=== PATIENT | male | born 1990 | race African-American/Black ===

== ENCOUNTER 2024-08-23 10:25 | Outpatient (REF) | payer OTHER, SELFPAY ==
--- NOTE | ~2024-08-23 | XR_ITS ---
EXAMINATION: XR KNEE, LEFT CLINICAL INFORMATION: Pain in left knee. COMPARISON: None available. TECHNIQUE: Four views of the left knee. FINDINGS: Prior ACL repair. No fracture, dislocation, or suspicious bone lesion. Normal alignment. Joint spaces demonstrate minimal narrowing medial compartment. Lateral and patellofemoral compartments are preserved. There is a prominent suprapatellar joint effusion. No soft tissue abnormality. XR/XR knee LT 4V IMPRESSION: 1. Suprapatellar joint effusion. 2. No acute bony abnormalities. Prior ACL repair. Electronically signed by: Souleymane Barnes MD 08/23/2024 11:53 AM [facility]
--- OUTSIDE RECORDS SUMMARY | 2024-08-23 12:48 | XMS_ITS | Encounter Summary ---
Author Organization [facility] Address [address] [place] [id number] Care Team Providers Care Space Operations Name Role Phone Pcp, No Primary Care Provider Unavailabl e Encounter Details Date Type Department Care Team (Latest Contact Info) Description 08/11/2024 Travel Social History Tobacco Use Types Packs/Day Years Used Date Smoking Tobacco: Never Assessed Sex and Gender Information Value Date Recorded Sex Assigned at Not on file Gender Identity Not on file Sexual Orientation Not on file documented as of this encounter Plan of Treatment Upcoming Encounters Date Type Department Care Team (Late st Contact Info) Description 10/18/2024 11:30 AM EDT Office Visit [facility] [address] [facility] [address] [place] [id number] Zayda Moreno PA-C [address] [place] [address] documented as of this encounter Visit Diagnoses Not on filedocumented in this encounter Care Teams Space Operations Relationship Specialty Start Date End Date Pcp, No PCP - General General Medicine 06/15/24 documented as of this encounter
--- OUTSIDE RECORDS SUMMARY | 2024-08-23 12:48 | XMS_ITS | Clinical Summary ---
Author Organization [facility] Address [address] [place] [address] Care Team Providers Care Molding Supervisor Name Role Phone Pcp, No Primary Care Provider Unavailabl e Allergies No known active allergies Medications No known medications Encounters Date Type Department Care Team Description 08/11/2024 7:25 PM EST Office Visit [facility] [address] [place] [address] Luis Saldaña MD Wiggins, Miriam K PACami Pain in joint involving right ankle and foot (Primary Dx) 08/11/2024 Travel from Last 3 Months Social History Tobacco Use Types Packs/Day Years Used Date Smoking Tobacco: Never Assessed Sex and Gender Information Value Date Recorded Sex Assigned at Not on file Gender Identity Not on file Sexual Orientation Not on file Last Filed Vital Signs Vital Sign Reading Time Taken Comments Blood Pressure 121/85 08/11/2024 7:48 PM EST Pulse 100 08/11/2024 7:48 PM EST Temperature 37 ??C (98.6 ??F) 08/11/2024 7:48 PM EST Respiratory Rate - - Oxygen Saturation 98% 08/11/2024 7:48 PM EST Inhaled Oxygen Concentration - - Weight - - Height - - Body Mass Index - - Plan of Treatment Upcoming Encounters Date Type Department Care Team (Late st Contact Info) Description 10/18/2024 11:30 AM EDT Office Visit [facility] [address] [facility] [address] [place] [phone] Zayda Moreno PA-C [address] [place] [address] Health Maintenance Due Date Last Done Comments Hepatitis C Virus Screening 1990 HIV Screening 2003 DTaP/Tdap/Td Vaccines (1 - Tdap) 2009 Hepatitis B Vaccines (1 of 3 - 19+ 3-dose series) 2009 Influenza Vaccine 02/11/2024 COVID-19 Vaccine (2 - 2023-2 5 season) 2024 05/09/2021 HPV Vaccines Aged Out No longer eligi ble based on patient's age to complete this topic Pneumococcal Vaccine: Pediat galdino (0-5 Years) and At-Risk Patients (6 to 49 Years) Aged Out No longer eligible b ased on patient's age to complete this topic Care Teams Molding Supervisor Relationship Specialty Start Date End Date Pcp, No PCP - General General Medicine 06/15/24
--- OUTSIDE RECORDS SUMMARY | 2024-08-23 12:48 | XMS_ITS | Encounter Summary ---
Author Organization [facility] Address [address] [place] [address] Care Team Providers Care Gas Brazer Name Role Phone Pcp, No Primary Care Provider Unavailabl e Reason for Visit * Reason Comments Ankle Pain RT ankle swollen and painful 1 day Encounter Details Date Type Department Care Team ([facility] st Contact Info) Description 08/11/2024 7:25 PM EST Office Visit [facility] [address] [place] [address] Luis Saldaña MD [address] [place] [address] Imelda Muñoz PA-C [address] [place] [phone] Pain in joint involving right ankle and foot (Primary Dx) Social History Tobacco Use Types Packs/Day Years Used Date Smoking Tobacco: Never Assessed Sex and Gender Information Value Date Recorded Sex Assigned at Not on file Gender Identity Not on file Sexual Orientation Not on file documented as of this encounter Last Filed Vital Signs Vital Sign Reading Time Taken Comments Blood Pressure 121/85 08/11/2024 7:48 PM EST Pulse 100 08/11/2024 7:48 PM EST Temperature 37 ??C (98.6 ??F) 08/11/2024 7:48 PM EST Respiratory Rate - - Oxygen Saturation 98% 08/11/2024 7:48 PM EST Inhaled Oxygen Concentration - - Weight - - Height - - Body Mass Index - - documented in this encounter Progress Notes * Imelda Muñoz PA-C - 08/11/2024 7:58 PM EST Images from the original note were not included. [facility] [address] [facility] [address] [place] [address] Encounter Date: 08/11/24 Assessment & Plan 1. Pain in joint involving right ankle and foot 1. Pain in joint involving right ankle and foot Medical Decision Making and Data Synthesis: Patients presents with acute onset of severe right ankle pain and swelling. Patient unable to weight-bear. Unable to tolerate range of motion. States he is unable to actively move his foot and ankle due to pain. He has no known history of gout. No injury or inciting event. He does recall a similar but less severe episode involving his left foot. He states he recently moved to [place] and has a PCP appointment sometime in the next month or 2. Due to severity of symptoms and lack of x-ray availability in center I recommended that the patientpresent to a local emergency department for further eval and treatment. He and significant other voiced understanding and agree with this plan. Discussed need for x-ray and laboratory workup to rule out infection. Communication barriers and lifestyle preferences were addressed with the patient. The care plan including medications and self-management goals were reviewed to the best of the patient's ability. Allquestions and concerns were answered. Patient and/or family verbalized understanding of the plan ofcare. Imelda Muñoz PA-C 08/11/24 7:58 PM Subjective HPI Jabier Sanchez is a 34 y.o. male who presents for evaluation of atraumatic onset of right ankle pain and swelling. Patient denies any injury or inciting event. Denies numbness or tingling. States heis unable to weight-bear. He does recall a similar episode in the past on his contralateral foot and ankle but states his symptoms were not as severe. Those symptoms resolved on their own. He has no known history of gout in himself or family members. No recall tick or other insect bite. Review of systems: Denies fevers, chills or sweats. Denies numbness or tingling of the left lower extremity. Denies involvement of other joints. No past medical history on file. No current outpatient medications on file. No Known Allergies No family history on file. No outpatient medications prior to visit. No Known Allergies Objective Vitals: 08/11/24 1948 BP: 121/85 Pulse: 100 Temp: 98.6 ??F (37 ??C) SpO2: 98% Examination: General: no acute distress, well developed, well nourished, alert and oriented x 3, patient moves all extremities without any difficulty. Head: Normocephalic, atraumatic. Extremities: Perfused. Examination of the right foot and ankle reveals moderate to severe edema involving the tibiotalar joint line and lateral aspect of the foot and ankle. Patient unable to tolerate ankle range of motion due to severe discomfort. Actively he is only able to plantarflex minimally and not able to dorsiflex. Passively he is unable to tolerate more than a 5 degree arc of motion. His skin is intact. He has no open wounds. He is diffusely tender to palpation about the tibiotalar joint as well as the subtalar joint line laterally. He has a palpable DP pulse. Sensation grossly intact to light touch. Calf supple and nontender. Patient unable to weight-bear due to severity of discomfort. Psych: Affect normal, Interactive, conversant. Skin: warm, dry, No rash on visible skin Imelda Muñoz PA-C 08/11/24 7:58 PM documented in this encounter Plan of Treatment Upcoming Encounters Date Type Department Care Team (Late st Contact Info) Description 10/18/2024 11:30 AM EDT Office Visit [address] [place] [address] Zayda Moreno PA-C [address] [place] [address] documented as of this encounter Visit Diagnoses Diagnosis Pain in joint involving right ankle and foot- Primary documented in this encounter Care Teams Gas Brazer Relationship Specialty Start Date End Date Pcp, No PCP - General General Medicine 06/15/24 documented as of this encounter
== END 2024-08-23 10:26 | disposition home or self-care (01) ==
LOC: HO.HMGCX 10:25
PROVIDERS: Visit Provider Internal Medicine
DX: M25.562 Pain in left knee (principal)
CPT/HCPCS: 73564

== ENCOUNTER 2024-08-23 10:25 | Outpatient (AMB) | payer OTHER, SELFPAY ==
--- NOTE | 2024-08-23 10:44 | MHC.OFFWIV ---
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 HPI Details - The patient is a 34-year-old male presenting with left knee pain possibly related to a gout flare-up. - Symptoms originated with ankle pain two weeks ago, suspecting gout, in ER, although not formally diagnosed at that time. - The left knee pain developed acutely and is localized, described as excruciating. - Ibuprofen was utilized for pain management prior to the current visit. - The patient practices a balanced diet and infrequent alcohol intake. Problem List - Gout / Pain swelling left knee Patient Instructions - Take prescribed medications including indomethacin and prednisone as directed for inflammation and pain management. - Proceed to the x-ray facility for imaging of the affected area. - Attend follow-up appointment in three days for further evaluation and continuation of care. - Seek immediate care if symptoms worsen or do not improve with treatment. Review of Systems - General: No fever no chills - Neurological: No headaches no dizziness - Ear nose throat: No sore throat no hearing difficulty no ear pain - Cardiovascular: No syncope, no chest pain, no palpitations - Gastrointestinal: No nausea vomiting or diarrhea - Endocrine: No polyuria polydipsia no heat intolerance - Genitourinary: No dysuria , no blood in urine Physical Exam General: No acute distress HEENT: No acute findings Neck: Supple Respiratory system: Able to talk in full sentences, no audible wheeze Gastrointestinal: No pain Extremities: Pain in left knee , + swelling, ROM limited due to pain, no erythema 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 - Symptoms originated with ankle pain two weeks ago, suspecting gout, in ER, although not formally diagnosed at that time. - The left knee pain developed acutely and is localized, described as excruciating. - Ibuprofen was utilized for pain management prior to the current visit. - The patient practices a balanced diet and infrequent alcohol intake. Problem List - Gout / Pain swelling left knee Patient Instructions - Take prescribed medications including indomethacin and prednisone as directed for inflammation and pain management. - Proceed to the x-ray facility for imaging of the affected area. - Attend follow-up appointment in three days for further evaluation and continuation of care. - Seek immediate care if symptoms worsen or do not improve with treatment. Orders: Orders XR knee RT 2V Today M25.561 - Pain in right knee Medications: New indomethacin administer with food or milk 50 mg PO BID 14 caps 0RF prednisone 20 mg PO DAILY 5 tabs 0RF 5 days Coding Level of Care Code New Pt Level 3 (02195) Diagnoses Pain, joint, knee, right M25.561
[2024-08-23 10:50] VITALS: BP 118/68; PULSE 90; TEMP 36.8; O2SAT 96
== END 2024-08-23 11:04 | disposition home or self-care (01) ==
PROVIDERS: Visit Provider Internal Medicine
DX: M25.561 Pain in right knee (principal)

== ENCOUNTER → 2024-08-23 11:16 | Outpatient (BNV) | payer OTHER, SELFPAY | PROVIDERS: Visit Provider Radiology Diagnostic Radiology | DX: M25.562 Pain in left knee (principal) | CPT/HCPCS: 73564 ==

== ENCOUNTER 2024-08-26 09:33 | Outpatient (AMB) | payer OTHER, SELFPAY ==
[2024-08-26 09:33] VITALS: BP 116/70; PULSE 87; TEMP 36.8; O2SAT 98; BMI 26.5
--- NOTE | 2024-08-26 09:33 | MHC.PC.OV ---
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 Allergies No Known Allergies Allergy (Verified 08/26/24 09:34) Medication List - Last Reconciled 08/26/24 by Heather Owen MD indomethacin 50 mg PO BID prednisone 20 mg PO DAILY 5 days Tobacco use date assessed: 08/26/24 Dental Screening Dental Screen Date: 08/26/24 Did you have a dental visit in the last 12 months?: Yes Did you have a dental problem in the last 6 months where you did not have access to dental care?: No Was dental information given to patient?: Patient has dentist 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 Swelling of left knee which was worse few days ago but is better now that he is able to walk on it - The patient is a 34-year-old male presenting with joint-related issues and chronic cough. - Previous knee swelling has improved though mild edema persists; patient was treated with indomethacin and prednisone, he is to continue indomethacin Patient will need a rheumatology consultation. He lives in [place] and will eventually change primary care locally - A chronic cough has persisted linked to allergy and possibly reflux, with symptoms including throat irritation; patient?s albuterol inhaler offers no relief. History of asthma as a child, history of multiple allergies Also complaining of regurgitation of food when he lays down at night - Comprehensive family history includes diabetes without history of thyroid or cardiac conditions. Health Maintenance - Up-to-date on immunizations, including tetanus vaccine. - Recommendations for routine blood work to evaluate cholesterol and glucose levels considering family history of diabetes. Medications - Indomethacin for joint swelling. I am adding omeprazole 40 mg to be taken at night Symbicort b.i.d. Also recommend to start taking okqq-iwb-odnglya allergy medication like loratadine or Zyrtec Social History - No pets at home which may contribute to allergies. - Resides in [place], previously lived in [place] for several years; occupation and education details not discussed. Family History - Positive family history of diabetes. - Denies family history of thyroid or cardiac conditions. Problem List - Joint Swelling - Chronic Cough - Gout - Family History of Diabetes - Asthma - Nice's Cyst - possible acid reflux - flare-up of asthma - multiple environmental allergies - overweight Patient Instructions - Schedule a rheumatology appointment down the road for further evaluation of recurrent knee swelling - Continue indomethacin for joint swelling as directed. - Begin a maintenance inhaler with steroid if indicated and covered by insurance. Symbicort sent - Consider rpie-jfi-ydeiqkb allergy medication such as Claritin daily. - Collect blood tests after a fasting period of at least 10 hours. - Continue monitoring symptoms and prepare for a follow-up in approximately three weeks. - start omeprazole at night Follow-up telephone visit in 3 weeks Review of Systems - General: No fever no chills - Neurological: No headaches no dizziness - Ear nose throat: No sore throat no hearing difficulty no ear pain - Cardiovascular: No syncope, no chest pain, no palpitations - Gastrointestinal: No nausea vomiting or diarrhea - Endocrine: No polyuria polydipsia no heat intolerance - Genitourinary: No dysuria - Skin: No new complaints Physical Exam General: Cooperative, healthy appearing, comfortable, no acute distress Orientation: Patient oriented x3 Limitations: Due to pain left knee Head: Normal to inspection Ears: Within normal limit visually Nose: Normal external nose present Face and sinus: Normal facial exam Eyes: Appearance normal, extraocular movement intact pupils reactive Neck: Normal visual inspection and supple Respiratory: Normal respiratory effort and able to speak in complete sentences. Clear to auscultation, no stridor Cardiovascular: S1 and S2 GI: Normal to inspection. Soft to palpation and nontender Skin: Turgor normal, no acute findings. Noted a small patch, possibly due to chronic friction, not itchy or painful Neuro: Patient oriented x3, motor sensory intact, balance intact Extremities: slight swelling noted in the knee, mild swelling is still present and also tender behind the knee with palpation but no calf tenderness [facility] Social History Housing: House Patient Tobacco Use Status: Never used Tobacco e-Cigarette/Vaping Use: Never Used service: No Cognitive needs: No Hearing needs: No Vision needs: No Questionnaire PHQ-9 Over the last 2 weeks, how often have you been bothered by any of the following problems? 1. Little interest or pleasure in doing things: not at all 2. Feeling down, depressed, or hopeless: not at all 3. Trouble falling or staying asleep, or sleeping too much: not at all 4. Feeling tired or having little energy: not at all 5. Poor appetite or overeating: not at all 6. Feeling bad about yourself - or that you are a failure or have let yourself or your family down: not at all 7. Trouble concentrating on things, such as reading the newspaper or watching television: not at all 8. Moving or speaking so slowly that other people could have noticed. Or the opposite - being so fidgety or restless that you have been moving around a lot more than usual: not at all 9. Thoughts that you would be better off or of hurting yourself in some way: not at all Total score: 0 Depression Screening Interpretation: Negative Depression Screening Done: Yes 46277 - PHQ-9 Billing: Yes Source: Developed by Drs. Aguilar Harrison, Kayli Hogan, Faheem Yeung and colleagues, with an educational rory from [employer]. Thrive Questionnaire Date Thrive assessed: 08/26/24 I am a: Patient What is your living situation today?: I have a steady place to live Within the past 12 months, did the food you bought not last and you didn't have the money to get more?: Never true Within the past 12 months, did you worry whether your food would run out before you got money to buy more?: Never true Do you have trouble paying for medicines?: No Do you have trouble getting transportation to medical appointments?: No Do you have trouble paying your heating and electricity bill?: No Do you have trouble taking care of your child, family member or friend?: No Do you have trouble with day-to-day activities such as bathing, preparing meals, shopping, managing finances, etc.?: No Are you currently unemployed and looking for a job?: No Are you interested in more education?: No Please select the resources that you would like help with: None Currently or been in a relationship where the following occur: No concerns reported THRIVE Score: 0 AUDIT C Alcohol Use Questionnaire (AUDIT-C) 1. How often do you have a drink containing alcohol?: Never 3. How often do you have six or more drinks on one occasion?: Never Total Score: 0 Score Reviewed/Action Taken: Yes KAREN-7 AMB Questionnaire KAREN-7 Date KAREN - 7 assessed: 08/26/24 Feeling nervous, anxious, or on edge: 0 = Not at all Not being able to stop or control worryin = Not at all Worrying too much about different things: 0 = Not at all Trouble relaxin = Not at all Being so restless that it is hard to sit still: 0 = Not at all Becoming easily annoyed or irritable: 0 = Not at all Feeling afraid as if something awful might happen: 0 = Not at all Total KAREN-7 score (0-4 normal; 5-9 mild; 10-14 moderate; 15-21 severe): 0 Source: Developed by Drs. Aguilar Harrison, Kayli Hogan, Faheem Yeung and colleagues, with an educational rory from [employer]. KAREN-7 Assessment Billing KAREN-7 Assessment Tool: KAREN-7 Assessment 62388 Physical exam (Primary Care) Vital Signs: Last Vital Signs Temp 98.2 F 08/26/24 09:33 Pulse 87 08/26/24 09:33 BP 116/70 08/26/24 09:33 Pulse Ox 98 08/26/24 09:33 Oxygen Delivery Method Room Air 08/26/24 09:33 BMI result Body Mass Index 26.5 Tobacco/Smoking Status: Tobacco use Status Tobacco use date assessed 08/26/24 08/26/24 09:42 Patient Tobacco Use Status Never used Tobacco 08/26/24 09:42 e-Cigarette/Vaping Use Never Used 08/26/24 09:42 PHQ-9: PHQ-9 Score PHQ-9: Total score 0 08/26/24 10:07 Depression Screening Interpretation: Negative Thrive Assessment: Date of Thrive Assessment Date Thrive assessed 08/26/24 08/26/24 09:42 Currently or been in a relationship where the following occur: No concerns reported Coding Level of Care Code New Pt Level 4 (20153) New Pt Prev Care 18-39yr(01033 Diagnoses Establishing care with new doctor, encounter for Z76.89 Pain, joint, knee, right M25.561 Gouty arthritis M10.9 Chronic cough R05.3 Gastroesophageal reflux disease without esophagitis K21.9 Esophagitis presence: without esophagitis History of asthma Z87.09 Multiple environmental allergies Z91.09 Family history of diabetes mellitus Z83.3 Overweight (BMI 25.0-29.9) E66.3 Additional Codes KAREN-7 Assessment Billing - KAREN-7 Assessment Tool: KAREN-7 Assessment 83685 ([id number]) PHQ-9 - 61157 - PHQ-9 Billing: Yes ([id number]) Assessment & Plan Assessment & Plan (1) Establishing care with new doctor, encounter for: Code(s): Z76.89 - Persons encountering health services in other specified circumstances Category: Medical (2) Pain, joint, knee, right: Code(s): M25.561 - Pain in right knee Category: Medical (3) Gouty arthritis: Code(s): M10.9 - Gout, unspecified Category: Medical (4) Chronic cough: Code(s): R05.3 - Chronic cough Category: Medical (5) Acid reflux: Code(s): K21.9 - Gastro-esophageal reflux disease without esophagitis Category: Medical Qualifiers: Esophagitis presence: without esophagitis Qualified Code(s): K21.9 - Gastro-esophageal reflux disease without esophagitis (6) History of asthma: Code(s): Z87.09 - Personal history of other diseases of the respiratory system Category: Medical (7) Multiple environmental allergies: Code(s): Z91.09 - Other allergy status, other than to drugs and biological substances Category: Medical (8) Family history of diabetes mellitus: Code(s): Z83.3 - Family history of diabetes mellitus Category: Medical (9) Overweight (BMI 25.0-29.9): Code(s): E66.3 - Overweight Category: Medical Plan Patient came in for establish care visit The patient presents with an ongoing joint problem and a persistent cough. Swelling of left knee which was worse few days ago but is better now that he is able to walk on it - The patient is a 34-year-old male presenting with joint-related issues and chronic cough. - Previous knee swelling has improved though mild edema persists; patient was treated with indomethacin and prednisone, he is to continue indomethacin Patient will need a rheumatology consultation. He lives in [place] and will eventually change primary care locally - A chronic cough has persisted linked to allergy and possibly reflux, with symptoms including throat irritation; patient?s albuterol inhaler offers no relief. History of asthma as a child, history of multiple allergies Also complaining of regurgitation of food when he lays down at night - Comprehensive family history includes diabetes without history of thyroid or cardiac conditions. Health Maintenance - Up-to-date on immunizations, including tetanus vaccine. - Recommendations for routine blood work to evaluate cholesterol and glucose levels considering family history of diabetes. Medications - Indomethacin for joint swelling. I am adding omeprazole 40 mg to be taken at night Symbicort b.i.d. Also recommend to start taking ntqj-eud-zthazvx allergy medication like loratadine or Zyrtec Social History - No pets at home which may contribute to allergies. - Resides in [place], previously lived in [place] for several years; occupation and education details not discussed. Family History - Positive family history of diabetes. - Denies family history of thyroid or cardiac conditions. Problem List - Joint Swelling - Chronic Cough - Gout - Family History of Diabetes - Asthma - Nice's Cyst - possible acid reflux - flare-up of asthma - multiple environmental allergies - overweight Patient Instructions - Schedule a rheumatology appointment down the road for further evaluation of recurrent knee swelling - Continue indomethacin for joint swelling as directed. - Begin a maintenance inhaler with steroid if indicated and covered by insurance. Symbicort sent - Consider huma-ssh-xtqgguo allergy medication such as Claritin daily. - Collect blood tests after a fasting period of at least 10 hours. - Continue monitoring symptoms and prepare for a follow-up in approximately three weeks. - start omeprazole at night Follow-up telephone visit in 3 weeks Orders: Orders Comprehensive [place]. Panel Fast Today M10.9 - Gout, unspecified, M25.561 - Pain in right knee, Z76.89 - Persons encountering health services in other specified circumstances Lipid Panel Today M10.9 - Gout, unspecified, M25.561 - Pain in right knee, Z76.89 - Persons encountering health services in other specified circumstances UA CC w/rflx Micro + Cult Today M10.9 - Gout, unspecified, M25.561 - Pain in right knee, Z76.89 - Persons encountering health services in other specified circumstances Complete Blood Count Auto Diff Today M10.9 - Gout, unspecified, M25.561 - Pain in right knee, Z76.89 - Persons encountering health services in other specified circumstances Vitamin D 25-OH (D2 and D3) Today M10.9 - Gout, unspecified, M25.561 - Pain in right knee, Z76.89 - Persons encountering health services in other specified circumstances Vitamin B12 Today M10.9 - Gout, unspecified, M25.561 - Pain in right knee, Z76.89 - Persons encountering health services in other specified circumstances TSH reflex Free T4 Today M10.9 - Gout, unspecified, M25.561 - Pain in right knee, Z76.89 - Persons encountering health services in other specified circumstances Uric Acid Today M10.9 - Gout, unspecified, M25.561 - Pain in right knee, Z76.89 - Persons encountering health services in other specified circumstances Hemoglobin A1c Today Z83.3 - Family history of diabetes mellitus Medications: New omeprazole Take it on empty stomach at night 40 mg PO DAILY 90 caps 0RF Acid reflux 90 days budesonide-formoterol 160-4.5 mcg/actuation (Symbicort) 1 inh inhalation BID 10.2 grams 0RF Asthma 30 days Changed From indomethacin administer with food or milk 50 mg PO BID 14 caps 0RF To indomethacin administer with food or milk 50 mg PO BID PRN 60 caps 0RF Knee pain 30 days
--- OUTSIDE RECORDS SUMMARY | 2024-08-26 09:59 | XMS_ITS | Clinical Summary ---
Author Organization [facility] Address [address] [place] [address] Care Team Providers Care Director Of Financial Aid Name Role Phone Pcp, No Primary Care Provider Unavailabl e Allergies No known active allergies Medications No known medications Encounters Date Type Department Care Team Description 08/11/2024 7:25 PM EST Office Visit [facility] [place] [address] [place] [address] Luis Saldaña MD Wiggins, Miriam K PACami [...] Description 10/18/2024 11:30 AM EDT Office Visit [facility] [address] [facility] [address] [place] [address] Zayda Moreno PA-C [address] [place] [address] Health Maintenance Due Date Last Done Comments [...] age to complete this topic Care Teams Director Of Financial Aid Relationship Specialty Start Date End Date Pcp, No PCP - General General Medicine 06/15/24
--- OUTSIDE RECORDS SUMMARY | 2024-08-26 10:00 | XMS_ITS | Encounter Summary ---
Author Organization [facility] Address [address] [place] [address] Care Team Providers Care Foam Cutting Supervisor Name Role Phone Pcp, No Primary Care Provider Unavailabl e Reason for Visit * Reason Comments Ankle Pain RT ankle swollen and painful 1 day Encounter Details Date Type Department Care Team ([facility] st Contact Info) Description 08/11/2024 7:25 PM EST Office Visit [facility] [place] [address] [place] [address] Luis Saldaña MD [address] [place] [address] Imelda Muñoz PA-C [address] [place] [id number] Pain in joint involving right ankle and [...] from the original note were not included. [facility] [address] [place] [facility] [place] [address] [place] [address] Encounter Date: 08/11/24 Assessment & Plan 1. [...] foot. He states he recently moved to [place] and has a PCP appointment sometime in [...] Description 10/18/2024 11:30 AM EDT Office Visit [address] [place] [address] Zayda Moreno PA-C [address] [place] [address] documented as of this encounter Visit Diagnoses Diagnosis Pain in joint involving right ankle and foot- Primary documented in this encounter Care Teams Foam Cutting Supervisor Relationship Specialty Start Date End Date Pcp, No PCP - General General Medicine 06/15/24 documented as of this encounter
--- OUTSIDE RECORDS SUMMARY | 2024-08-26 10:00 | XMS_ITS | Encounter Summary ---
Author Organization [facility] Address [address] [place] [address] Care Team Providers Care Shoe Singer Name Role Phone Pcp, No Primary Care [...] 10/18/2024 11:30 AM EDT Office Visit [facility] 100 [facility] [address] [place] [address] Zayda Moreno PA-C [address] [place] [address] documented as of this encounter Visit Diagnoses Not on filedocumented in this encounter Care Teams Shoe Singer Relationship Specialty Start Date End Date Pcp, No PCP - General General Medicine 06/15/24 documented as of this encounter
== END 2024-08-26 10:17 | disposition home or self-care (01) ==
PROVIDERS: PCP Internal Medicine; Visit Provider Internal Medicine
DX: Z00.00 Encounter for general adult medical examination without abnormal findings (principal); M25.561 Pain in right knee; M10.9 Gout, unspecified; R05.3 Chronic cough; K21.9 Gastro-esophageal reflux disease without esophagitis; Z76.89 Persons encountering health services in other specified circumstances; Z87.09 Personal history of other diseases of the respiratory system; Z91.09 Other allergy status, other than to drugs and biological substances; Z83.3 Family history of diabetes mellitus; E66.3 Overweight

== ENCOUNTER 2024-08-26 09:33 | Outpatient (REF) | payer OTHER, SELFPAY ==
--- OUTSIDE RECORDS SUMMARY | 2024-08-26 10:44 | XMS_ITS | Encounter Summary ---
Author Organization [facility] Address [address] [place] [address] Care Team Providers Care Thread Dresser Name Role Phone Pcp, No Primary Care [...] Description 10/18/2024 11:30 AM EDT Office Visit [facility] 100 [facility] [address] [place] [address] Zayda Moreno PA-C [address] [place] [address] documented as of this encounter Visit Diagnoses Not on filedocumented in this encounter Care Teams Thread Dresser Relationship Specialty Start Date End Date Pcp, No PCP - General General Medicine 06/15/24 documented as of this encounter
--- OUTSIDE RECORDS SUMMARY | 2024-08-26 10:44 | XMS_ITS | Encounter Summary ---
Author Organization [facility] Address [address] [place] [address] Care Team Providers Care Electrical Electronics Engineers Name Role Phone Pcp, No Primary Care Provider Unavailabl e Reason for Visit * Reason Comments Ankle Pain RT ankle swollen and painful 1 day Encounter Details Date Type Department Care Team ([facility] st Contact Info) Description 08/11/2024 7:25 PM EST Office Visit [facility] [place] [address] [place] [address] Luis Saldaña MD 1 [place] [address] Imelda Muñoz PA-C [address] [place] [address] Pain in joint involving right ankle and [...] from the original note were not included. [facility] [address] [facility] [place] [address] [place] [address] Encounter Date: 08/11/24 Assessment & Plan 1. [...] foot. He states he recently moved to [place] and has a PCP appointment sometime in [...] Description 10/18/2024 11:30 AM EDT Office Visit [address] [place] [address] Zayda Moreno PA-C [address] [place] [address] documented as of this encounter Visit Diagnoses Diagnosis Pain in joint involving right ankle and foot- Primary documented in this encounter Care Teams Electrical Electronics Engineers Relationship Specialty Start Date End Date Pcp, No PCP - General General Medicine 06/15/24 documented as of this encounter
--- OUTSIDE RECORDS SUMMARY | 2024-08-26 10:44 | XMS_ITS | Clinical Summary ---
Author Organization [facility] Address [address] [place] [address] Care Team Providers Care Photography Colorist Name Role Phone Pcp, No Primary Care Provider Unavailabl e Allergies No known active allergies Medications No known medications Encounters Date Type Department Care Team Description 08/11/2024 7:25 PM EST Office Visit [facility] [place] [address] [place] [address] Luis Saldaña MD Wiggins, Miriam K PACami [...] Description 10/18/2024 11:30 AM EDT Office Visit [facility] 100 [facility] 101 [place] [address] Zayda Moreno PA-C [address] [place] [address] Health Maintenance Due Date Last Done Comments [...] age to complete this topic Care Teams Photography Colorist Relationship Specialty Start Date End Date Pcp, No PCP - General General Medicine 06/15/24
[2024-08-26 13:12] LABS: MANUAL DIFF FLAG NO
[2024-08-26 13:23] LABS: Basophils Percent Auto 0.6 % (0-2); Eosinophils Absolute Auto 0.1 X10*3/uL (0.0-0.4); Eosinophils Percent Auto 1.2 % (0-4); Hematocrit 44.3 % (42.0-52.0); Hemoglobin 13.8 g/dl (14.0-18.0); Imm Gran Abs Auto 0.03 X10*3/uL (0.00-0.03); Imm Gran Pct Auto 0.4 % (0.0-0.4); Lymphocytes Absolute Auto 2.4 X10*3/uL (1.2-4.9); Lymphocytes Percent Auto 32.5 % (20-40); Mean Corpuscular HGB Conc 31.2 g/dl (31.0-36.0); Mean Corpuscular Hemoglobin 27.4 pg (27.0-33.0); Mean Corpuscular Volume 88.1 fL (80.0-98.0); Mean Platelet Volume 9.7 fL (9.4-12.4); Monocytes Absolute Auto 0.6 X10*3/uL (0.1-1.2); Monocytes Percent Auto 7.6 % (2-11); Neutrophils Absolute Auto 4.2 x10*3/uL (2.0-8.3); Neutrophils Percent Auto 57.7 % (45-73); Platelet Count 357 X10*3/uL (160-400); Red Blood Count 5.03 X10*6/uL (4.60-5.80); Red Cell Distribution Width 13.4 % (11.0-16.0); White Blood Count 7.2 X10*3/uL (4.8-10.8)
[2024-08-26 13:40] LABS: Color Urine Yellow; Glucose Urine UA Negative (Negative); Leukocyte Esterase Urine Negative (Negative); Nitrite Urine Negative (Negative); PH 5.5 (5.0-9.0); Urine Blood Negative (Negative); Urine Ketones Negative (Negative); Urine Protein Negative (Neg-Trace)
[2024-08-26 13:43] LABS: Alanine Aminotransferase 22 U/L (0-40); Albumin Level 4.2 g/dL (3.5-5.0); Alkaline Phosphatase 60 U/L (39-117); Anion Gap 13 (12-20); Aspartate Amino Transferase 26 U/L (5-37); Bilirubin Total 0.3 mg/dL (0.0-1.0); Blood Urea Nitrogen 18 mg/dL (9-16); Calcium 9.8 mg/dL (8.4-10.2); Carbon Dioxide 26 mmol/L (22-29); Chloride 105 mmol/L (96-108); Cholesterol 184 mg/dL (<200); Estimated Glomerular Filt Rate > 60; Glucose Fasting 111 mg/dL (60-99); HDL Cholesterol 44 mg/dL (>40); LDL Cholesterol Calculated 125 mg/dL (<100); Potassium 3.9 mmol/L (3.3-5.1); Sodium 140 mmol/L (135-145); Total Protein 7.9 g/dL (6.5-8.0); Triglycerides 77 mg/dL (<150); Uric Acid 8.4 mg/dL (3.4-7.0)
[2024-08-26 13:44] LABS: Appearance Urine Clear
[2024-08-26 13:46] LABS: Estimated Average Glucose 123 mg/dL; Hemoglobin A1C 150.0727 umol/L; Hemoglobin A1c % 5.9 % (<6.0); Total Hemoglobin (HGBA1C) 3678.6686 umol/L
[2024-08-26 14:03] LABS: TSH reflex Free T4 2.18 uIU/mL (0.32-4.0)
[2024-08-26 14:12] LABS: Vitamin B12 563 pg/mL (200-900)
[2024-08-30 17:23] LABS: Vitamin D 25-OH, D2 <4 ng/mL; Vitamin D 25-OH, D3 10 ng/mL; Vitamin D 25-OH, Total 10 ng/mL (30-100)
== END 2024-08-26 09:34 | disposition home or self-care (01) ==
LOC: HO.HMGCLDS 09:33
PROVIDERS: Visit Provider Internal Medicine
DX: Z76.89 Persons encountering health services in other specified circumstances (principal); M25.561 Pain in right knee; M10.9 Gout, unspecified; R05.3 Chronic cough; K21.9 Gastro-esophageal reflux disease without esophagitis; E66.3 Overweight; Z87.09 Personal history of other diseases of the respiratory system; Z91.09 Other allergy status, other than to drugs and biological substances; Z83.3 Family history of diabetes mellitus; Z13.1 Encounter for screening for diabetes mellitus
CPT/HCPCS: 36415; 80053; 80061; 81003; 82306; 82607; 83036; 84443; 84550; 85025; 96127

== ENCOUNTER 2024-09-29 08:06 | Outpatient (AMB) | payer OTHER, SELFPAY ==
--- NOTE | 2024-09-29 10:07 | MHC.PC.OV ---
Intake Visit Reasons: 1 Wk f/u Allergies No Known Allergies Allergy (Verified 08/26/24 09:34) Medication List - Last Reconciled 09/29/24 by Heather Owen MD budesonide-formoterol 160-4.5 mcg/actuation (Symbicort) 1 inh inhalation BID 30 days indomethacin 50 mg PO BID PRN 30 days omeprazole 40 mg PO DAILY 90 days Tobacco use date assessed: 08/26/24 Dental Screening Dental Screen Date: 08/26/24 HPI 1 Wk f/u HPI Details History - The patient is a 34-year-old male presenting with Gastroesophageal Reflux Disease (GERD). - The patient began taking omeprazole 40 mg for past 30 days ago, with a marked improvement in reflux and related cough symptoms. - He also has a history of Chronic Knee Gout, affecting both knee and ankle. - Medication was used during gout attacks Indomethacin, with significant relief. Discontinued once symptoms dissipated. - Laboratory findings indicate prediabetes; discusses familial diabetes history and dietary habits. - Reports increased intake of candy and carbohydrates, aware of dietary impact. - Patient's lab results revealed a Vitamin D deficiency; not currently taking any supplements. Uric acid level is high, i am starting him on allupurinol Review of Systems - General: No fever no chills - Neurological: No headaches no dizziness - Ear nose throat: No sore throat no hearing difficulty no ear pain - Cardiovascular: No syncope, no chest pain, no palpitations - Gastrointestinal: No nausea vomiting or diarrhea - Endocrine: No polyuria polydipsia no heat intolerance - Genitourinary: No dysuria , no blood in urine [facility] Social History Housing: House Patient Tobacco Use Status: Never used Tobacco e-Cigarette/Vaping Use: Never Used service: No Cognitive needs: No Hearing needs: No Vision needs: No Questionnaire Thrive Questionnaire Date Thrive assessed: 08/26/24 KAREN-7 AMB Questionnaire KAREN-7 Date KAREN - 7 assessed: 08/26/24 Source: Developed by Drs. Aguilar Harrison, Kayli Hogan, Faheem Yeung and colleagues, with an educational rory from [employer]. Physical exam (Primary Care) Tobacco/Smoking Status: Tobacco use Status Tobacco use date assessed 08/26/24 08/26/24 09:42 Patient Tobacco Use Status Never used Tobacco 08/26/24 09:42 e-Cigarette/Vaping Use Never Used 08/26/24 09:42 Thrive Assessment: Date of Thrive Assessment Date Thrive assessed 08/26/24 08/26/24 09:42 Telehealth Telehealth Telehealth Platform: [employer] Location of provider rendering services: practice address Location of patient: address on file Patient Identification confirmed using: Name, : Yes Telehealth method: video (attempted) Patient verbally consented to treatment: Yes Patient verbally consented to billing insurance company: Yes Patient informed of any privacy concerns related to visit: Yes Coding Level of Care Code Tele Est Pt Level 4 (02683) Diagnoses Gastroesophageal reflux disease without esophagitis K21.9 Esophagitis presence: without esophagitis Chronic cough R05.3 Gouty arthritis M10.9 Prediabetes R73.03 Vitamin D deficiency E55.9 High blood uric acid level E79.0 Time Spent (min) 30 Assessment & Plan Assessment & Plan (1) Acid reflux: Code(s): K21.9 - Gastro-esophageal reflux disease without esophagitis Category: Medical Qualifiers: Esophagitis presence: without esophagitis Qualified Code(s): K21.9 - Gastro-esophageal reflux disease without esophagitis (2) Chronic cough: Code(s): R05.3 - Chronic cough Category: Medical (3) Gouty arthritis: Code(s): M10.9 - Gout, unspecified Category: Medical (4) Prediabetes: Code(s): R73.03 - Prediabetes Category: Medical (5) Vitamin D deficiency: Code(s): E55.9 - Vitamin D deficiency, unspecified Category: Medical (6) High blood uric acid level: Code(s): E79.0 - Hyperuricemia without signs of inflammatory arthritis and tophaceous disease Category: Medical Plan History - The patient is a 34-year-old male presenting with Gastroesophageal Reflux Disease (GERD). - The patient began taking omeprazole 40 mg for past 30 days ago, with a marked improvement in reflux and related cough symptoms. - He also has a history of Chronic Knee Gout, affecting both knee and ankle. - Medication was used during gout attacks Indomethacin, with significant relief. Discontinued once symptoms dissipated. - Laboratory findings indicate prediabetes; discusses familial diabetes history and dietary habits. - Reports increased intake of candy and carbohydrates, aware of dietary impact. - Patient's lab results revealed a Vitamin D deficiency; not currently taking any supplements. Uric acid level is high, i am starting him on allupurinol Medications: New allopurinol 100 mg PO DAILY 90 tabs 0RF cholecalciferol (vitamin D3) 50 mcg PO DAILY 90 days 90 caps 1RF Discontinued budesonide-formoterol 160-4.5 mcg/actuation (Symbicort) Discontinued Reason: Doctor's Order 1 inh inhalation BID 30 days 10.2 grams 0RF Asthma
== END 2024-09-29 10:25 | disposition home or self-care (01) ==
LOC: HO.HMCC 08:06
PROVIDERS: PCP Internal Medicine; Visit Provider Internal Medicine
DX: K21.9 Gastro-esophageal reflux disease without esophagitis (principal); R05.3 Chronic cough; M10.9 Gout, unspecified; R73.03 Prediabetes; E55.9 Vitamin D deficiency, unspecified; E79.0 Hyperuricemia without signs of inflammatory arthritis and tophaceous disease

== ENCOUNTER → 2024-09-29 08:06 | Outpatient (BNVA) | payer OTHER, SELFPAY | PROVIDERS: PCP Internal Medicine; Visit Provider Internal Medicine ==

== ENCOUNTER 2024-12-21 13:40 | Outpatient (AMB) | payer OTHER, SELFPAY ==
[2024-12-21 13:42] VITALS: BP 110/70; PULSE 87; RESP 15; TEMP 36.6; O2SAT 97; BMI 26.7
--- NOTE | 2024-12-21 13:42 | A.OFFPC_ITS ---
Vital Signs 12/21/24 13:42 Height 6 ft Weight 197 lb BMI 26.7 BP 110/70 Blood Pressure Location Rt brachial Position Sitting Respiration 15 Pulse 87 Pulse Source Pulse Oximeter Temp 97.8 F Pulse Oximetry (%) 97 Oxygen Delivery Method Room Air Intake Visit Reasons: F/up GERD Allergies No Known Allergies Allergy (Verified 12/21/24 13:42) Medication List - Last Reconciled 12/21/24 by Heather Owen MD cholecalciferol (vitamin D3) 50 mcg PO DAILY 90 days omeprazole 40 mg PO DAILY 90 days Tobacco use date assessed: 12/21/24 Dental Screening Dental Screen Date: 12/21/24 Did you have a dental visit in the last 12 months?: Yes Did you have a dental problem in the last 6 months where you did not have access to dental care?: No Was dental information given to patient?: Patient has dentist HPI F/up GERD HPI Details History - The patient is a 34-year-old male pres enting with a follow-up for management of Gastroesophageal Reflux Disease (GERD). - Patient reports starting on omeprazole 40 mg in September for GERD symptoms, including reflux and coughing, with good symptom control. - Patient notes past episode of gout eff ectively managed with indomethacine, currently well-controlled without recent flare-ups. - Hyperuricemia managed with allopurinol initiated due to elevated uric acid levels. - Laboratory results from August showe d hemoglobin 13.8, fasting glucose 111, hemoglobin A1c 5.9, uric acid 8.4, LDL 125, and notably low vitamin D at 10. - Vitamin D supplementation recommended due to low levels. - No recent exacerbation of GERD or gout symptoms. - Reports occasional stomach pain possib ly linked to dietary habits, such as coffee consumption on an empty stomach. - Patient is aware of family history rel ated to diabetes and expresses intent to monitor this aspect closely due to prediabetes diagnosis. Medical History: - Gastroesophageal Reflux Disease (GERD) - Gout - Hyperuricemia - Vitamin D Deficiency - Prediabetes Medications: - Omeprazole 40 mg daily for management of GERD - Vitamin D supplements for vitamin D de ficiency - Indomethacine previously used for nuvia ging gout flare-ups - Allopurinol for managing hyperuricemia Social History: - Reports dietary habits potentially imp acting GERD, such as meals skipping and consuming coffee on an empty stomach - Family history positive for diabetes, leading to concern over prediabetes Family History: - Family history notable for diabetes Diagnostic Results: - Labs (August): - Hemoglobin: 13.8 g/ dL - Fasting glucose: 111 mg/dL - Hemoglobin A1c: 5.9% - Uric acid: 8.4 mg/dL - LDL cholesterol: 125 mg/dL - Vitamin D level: 10 ng/mL Problem List - Gastroesophageal Reflux Disease (GERD) - Gout - Hyperuricemia - Vitamin D Deficiency - Prediabetes Patient Instructions - Continue taking omeprazole but conside r reducing the dose to 20 mg and assess symptom control. - Continue vitamin D supplementation as per previous recommendations. - Monitor for symptoms or flare-ups of g out; consider using indomethacine or other NSAIDs as needed. - Schedule a physical exam annually and track laboratory results, especially in relation to prediabetes. - Maintain a food diary to identify and avoid dietary triggers. - Be cautious with consuming coffee on a n empty stomach and aim for balanced meal intake. Review of Systems - General: No fever no chills - Neurological: No headaches no dizziness - Ear nose throat: No sore throat no hearing difficulty no ear pain - Cardiovascular: No syncope, no chest pain, no palpitations - Gastrointestinal: No nausea vomiting or diarrhea - Endocrine: No polyuria polydipsia no heat intolerance - Genitourinary: No dysuria , no blood in urine Physical Exam General: No acute distress HEENT: No acute findings Neck: Supple Respiratory system: Able to talk in full sentences, no audible wheeze Cardiovascular: S1-S2 regular in rate and rhythm Gastrointestinal: No pain currently, but patient reports occasional pain related to coffee on an empty stomach Extremities: No new findings 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 1. Little interest or pleasure in doing things: more than half the days 2. Feeling down, depressed, or hopeless: not at all 3. Trouble falling or staying asleep, or sleeping too much: not at all 4. Feeling tired or having little energy: not at all 5. Poor appetite or overeating: not at all 6. Feeling bad about yourself - or that you are a failure or have let yourself or your family down: not at all 7. Trouble concentrating on things, such as reading the newspaper or watching television: more than half the days 8. Moving or speaking so slowly that other people could have noticed. Or the opposite - being so fidgety or restless that you have been moving around a lot more than usual: not at all 9. Thoughts that you would be better off or of hurting yourself in some way: not at all Total score: 4 Depression Screening Interpretation: Negative Depression Screening Done: Yes 28451 - PHQ-9 Billing: Yes Source: Developed by Drs. Aguilar Harrison, Faheem Herman and colleagues, with an educational rory from [email or web address]. Thrive Questionnaire Date Thrive assessed: 08/26/24 I am a: Patient What is your living situation today?: I have a steady place to live Within the past 12 months, did the food you bought not last and you didn't have the money to get more?: Never true Within the past 12 months, did you worry whether your food would run out before you got money to buy more?: Never true Do you have trouble paying for medicines?: No Do you have trouble getting transportation to medical appointments?: No Do you have trouble paying your heating and electricity bill?: No Do you have trouble taking care of your child, family member or friend?: No Do you have trouble with day-to-day activities such as bathing, preparing meals, shopping, managing finances, etc.?: No Are you currently unemployed and looking for a job?: No Are you interested in more education?: No Please select the resources that you would like help with: None Currently or been in a relationship where the following occur: No concerns reported THRIVE Score: 0 KAREN-7 AMB Questionnaire KAREN-7 Date KAREN - 7 assessed: 08/26/24 Source: Developed by Drs. Aguilar Harrison, Faheem Herman and colleagues, with an educational rory from [email or web address]. Physical exam (Primary Care) Vital Signs: Last Vital Signs Temp 97.8 F 12/21/24 13:42 Pulse 87 12/21/24 13:42 Resp 15 12/21/24 13:42 BP 110/70 12/21/24 13:42 Pulse Ox 97 12/21/24 13:42 Oxygen Delivery Method Room Air 12/21/24 13:42 BMI result Body Mass Index 26.7 Tobacco/Smoking Status: Tobacco use Status Tobacco use date assessed 12/21/24 12/21/24 13:48 Patient Tobacco Use Status Never used Tobacco 12/21/24 13:48 e-Cigarette/Vaping Use Never Used 12/21/24 13:48 Depression Screening Interpretation: Negative Thrive Assessment: Date of Thrive Assessment Date Thrive assessed 08/26/24 12/21/24 13:48 Currently or been in a relationship where the following occur: No concerns reported Coding Level of Care Code Est Pt Level 4 (11447) Diagnoses Gastroesophageal reflux disease without esophagitis K21.9 Esophagitis presence: without esophagitis Gouty arthritis M10.9 Prediabetes R73.03 Vitamin D deficiency E55.9 High blood uric acid level E79.0 Additional Codes PHQ-9 - 57690 - PHQ-9 Billing: Yes ([id number]) Assessment & Plan Assessment & Plan (1) Acid reflux: Code(s): K21.9 - Gastro-esophageal reflux disease without esophagitis Category: Medical Qualifiers: Esophagitis presence: without esophagitis Qualified Code(s): K21.9 - Gastro-esophageal reflux disease without esophagitis (2) Gouty arthritis: Code(s): M10.9 - Gout, unspecified Category: Medical (3) Prediabetes: Code(s): R73.03 - Prediabetes Category: Medical (4) Vitamin D deficiency: Code(s): E55.9 - Vitamin D deficiency, unspecified Category: Medical (5) High blood uric acid level: Code(s): E79.0 - Hyperuricemia without signs of inflammatory arthritis and tophaceous disease Category: Medical Plan History - The patient is a 34-year-old male presenting with a follow-up for management of Gastroesophageal Reflux Disease (GERD). - Patient reports starting on omeprazole 40 mg in September for GERD symptoms, inc luding reflux and coughing, with good symptom control. - Patient notes past episode of gout effectively managed with indomethacine, currently well-controlled without recent flare-ups. - Hyperuricemia managed with allopurinol initiated due to elevated uric acid levels. - Laboratory results from August showed hemoglobin 13.8, fasting glucose 111, hemoglobin A1c 5.9, uric acid 8.4, LDL 125, and notably low vitamin D at 10. - Vitamin D supplementation recommended due to low levels. - No recent exacerbation of GERD or gout symptoms. - Reports occasional stomach pain possibly linked to dietary habits, such as coffee consumption on an empty stomach. - Patient is aware of family history related to diabetes and expresses intent to monitor this aspect closely due to prediabetes diagnosis. Medical History: - Gastroesophageal Reflux Disease (GERD) - Gout - Hyperuricemia - Vitamin D Deficiency - Prediabetes Medications: - Omeprazole 40 mg daily for management of GERD - Vitamin D supplements for vitamin D deficiency - Indomethacine previously used for managing gout flare-ups - Allopurinol for managing hyperuricemia Social History: - Reports dietary habits potentially impacting GERD, such as meals skipping and consuming coffee on an empty stomach - Family history positive for diabetes, leading to concern over prediabetes Family History: - Family history notable for diabetes Diagnostic Results: - Labs (August): - Hemoglobin: 13.8 g/dL - Fasting glucose: 111 mg/dL - Hemoglobin A1c: 5.9% - Uric acid: 8.4 mg/dL - LDL cholesterol: 125 mg/dL - Vitamin D level: 10 ng/mL Problem List - Gastroesophageal Reflux Disease (GERD) - Gout - Hyperuricemia - Vitamin D Deficiency - Prediabetes Patient Instructions - Continue taking omeprazole but consider reducing the dose to 20 mg and assess symptom control. - Continue vitamin D supplementation as per previous recommendations. - Monitor for symptoms or flare-ups of gout; consider using indomethacine or other NSAIDs as needed. - Schedule a physical exam annually and track laboratory results, especially in relation to prediabetes. - Maintain a food diary to identify and avoid dietary triggers. - Be cautious with consuming coffee on an empty stomach and aim for balanced meal intake. Medications: Changed From omeprazole Take it on empty stomach at night 40 mg PO DAILY 90 days 90 caps 0RF Acid reflux To omeprazole Take it on empty stomach at night 20 mg PO DAILY 90 days 90 caps 0RF Acid reflux
--- OUTSIDE RECORDS SUMMARY | 2024-12-21 15:28 | XMS_ITS | Clinical Summary ---
Author Organization [facility] Address [address] [place] [id number] Care Team Providers Care Financial Compliance Officer Name Role Phone Pcp, No Primary Care Provider Unavailabl e Allergies No known active allergies Medications No known medications Social History Tobacco Use Types Packs/Day Years Used Date Smoking Tobacco: Never Assessed Sex and Gender Information Value Date Recorded Sex Assigned at Not on file Legal Sex Male 11:32 AM EDT Gender Identity Not on file Sexual Orientation [...] Mass Index - - Plan of Treatment Health Maintenance Due Date Last Done Comments Hepatitis C Virus Screening 1990 HIV Screening 2003 DTaP/Tdap/Td Vaccines (1 - Tdap) 2009 Hepatitis B Vaccines (1 of 3 - 19+ 3-dose series) 2009 COVID-19 Vaccine (2 - 2023-2 5 season) 2024 05/09/2021 Influenza Vaccine 02/10/2025 HPV Vaccines Aged Out No longer eligi ble based on patient's age to complete this topic Pneumococcal Vaccine: Pediat galdino (0-5 Years) and At-Risk Patients (6 to 49 Years) Aged Out No longer eligible b ased on patient's age to complete this topic Insurance [facility] Care Teams Financial Compliance Officer Relationship Specialty Start Date End Date Pcp, No PCP - General General Medicine 06/15/24
== END 2024-12-21 13:57 | disposition home or self-care (01) ==
LOC: HO.HMCC 13:41
PROVIDERS: PCP Internal Medicine; Visit Provider Internal Medicine
DX: K21.9 Gastro-esophageal reflux disease without esophagitis (principal); M10.9 Gout, unspecified; R73.03 Prediabetes; E55.9 Vitamin D deficiency, unspecified

== ENCOUNTER → 2024-12-21 13:40 | Outpatient (BNVA) | payer OTHER, SELFPAY | PROVIDERS: PCP Internal Medicine; Visit Provider Internal Medicine | DX: K21.9 Gastro-esophageal reflux disease without esophagitis (principal); R50.9 Fever, unspecified; E55.9 Vitamin D deficiency, unspecified; M10.9 Gout, unspecified; R73.03 Prediabetes | CPT/HCPCS: 96127 ==